=== PATIENT | female | born 1975 | race Caucasian/White ===

== ENCOUNTER 2020-06-17 12:12 | Emergency (ER) | payer OTHER ==
[~2020-06-17] VITALS: Ht 165.1 cm; Wt 81.6 kg
[2020-06-17 14:13] LABS: HEMOGLOBIN 13.9 gm/dl (12.3-15.3); RED BLOOD COUNT 4.42 M/UL (4.00-5.10); WHITE BLOOD COUNT 11.1 K/UL (4.5-11.0)
[2020-06-17 14:53] LABS: BUN/CREATININE RATIO 14 (0-10)
[2020-06-17] MEDS ORDERED: DOXYCYCLINE HY100 MG PO (15:35)
[2020-06-17] MEDS ORDERED: PROAIR HFA8.5 GM INH (15:35)
== END 2020-06-17 16:01 | disposition home or self-care (01) ==
LOC: ER1 12:12
PROVIDERS: Physician Assistant
DX: U07.1 COVID-19 (principal); J12.82 Pneumonia due to coronavirus disease 2019; E87.6 Hypokalemia; E03.9 Hypothyroidism, unspecified
CPT/HCPCS: 0240U; 71045; 80053; 82550; 82553; 83615; 83874; 84484; 85025; 86140; 87081; 87880; 93005; 99285

== ENCOUNTER 2020-06-19 17:31 | Emergency (ER) | payer OTHER ==
[~2020-06-19 17:31] MED LIST: DOXYCYCLINE HY100 MG PO; PROAIR HFA8.5 GM INH
[2020-06-19 19:47] LABS: HEMOGLOBIN 14.4 gm/dl (12.3-15.3); RED BLOOD COUNT 4.68 M/UL (4.00-5.10); WHITE BLOOD COUNT 8.2 K/UL (4.5-11.0)
[2020-06-19 20:23] LABS: BUN/CREATININE RATIO 15 (0-10)
[2020-06-19] MEDS ORDERED: DECADRON6 MG PO (21:46)
== END 2020-06-19 22:03 | disposition home or self-care (01) ==
LOC: ER1 17:31
PROVIDERS: Physician Assistant
DX: U07.1 COVID-19 (principal); J12.82 Pneumonia due to coronavirus disease 2019; I10 Essential (primary) hypertension; E03.9 Hypothyroidism, unspecified; R09.02 Hypoxemia
CPT/HCPCS: 36600; 71045; 80053; 81001; 82550; 82553; 82803; 83874; 84484; 84703; 85025; 85379; 93005; 96374; 96375; 99285; J1100; J1885; J2405